=== PATIENT | female | born 1955 | race American Indian/Alaskan Native ===

== ENCOUNTER 2017-03-31 09:03 | Outpatient (CLI) | payer OTHER ==
--- NOTE | 2017-03-31 10:30 | Mammography Report ---
BILATERAL MAMMOGRAM: FINDINGS: Baseline examination. There are scattered fibroglandular densities (approximately 25%-50% glandular). No mass, distortion, suspicious calcification, or skin change is seen. CAD was utilized. IMPRESSION: Negative mammogram. There is no mammographic evidence of malignancy. RECOMMENDATION: Follow-up per ACS guidelines. BI-RADS CATEGORY: 1 = Negative ACR BI-RADS MAMMOGRAPHIC CODES: 0 = Needs additional imaging evaluation; 1 = Negative; 2 = Benign; 3 = Probably benign; 4 = Suspicious; 5 = Malignant; 6 = Known biopsy-proven malignancy COMMENT: 1. Dense breast tissue, i.e., adenosis, fibrocystic changes, etc., may obscure an underlying neoplasm. 2. Approximately 10% of cancers are not detected with mammography. 3. A negative mammography report should not delay biopsy if a clinically suspicious mass is present. COMMENT: Patient follow-up letters are generated in [employer].
== END 2017-03-31 09:04 | disposition home or self-care (01) ==
LOC: SPVWC 09:03
PROVIDERS: ATTEND Family Medicine
DX: Z12.31 Encounter for screening mammogram for malignant neoplasm of breast (principal)
CPT/HCPCS: 77067; G0202

== ENCOUNTER 2017-06-17 09:18 | Outpatient (CLI) | payer OTHER ==
--- NOTE | 2017-06-17 11:46 | Ultrasound Report ---
Thyroid ultrasound. History: Enlarged thyroid. Findings: There are numerous bilateral solid nodules within the thyroid. The largest in the right lobe is in the midpole measuring 2.7 x 2.2 cm. The largest nodule in the left lobe is in the lower pole measuring 2.9 x 2.7 cm. A solid nodule in the isthmus measures 1.8 cm in diameter. Impression: Multinodular goiter.
== END 2017-06-17 09:19 | disposition home or self-care (01) ==
LOC: SPVWC 09:18
PROVIDERS: ATTEND Family Medicine
DX: E04.2 Nontoxic multinodular goiter (principal)
CPT/HCPCS: 76536

== ENCOUNTER 2019-08-04 10:04 | Outpatient (CLI) | payer OTHER ==
--- NOTE | 2019-08-07 11:44 | Mammography Report ---
DIGITAL SCREENING MAMMOGRAM WITH CAD, 08/04/2019 INDICATION: Routine screening mammography. TECHNIQUE: Digital bilateral 2D mammography was obtained in the craniocaudal and mediolateral obliq ue projections. This examination was interpreted with the benefit of Computer-Aided Detection analysi s. COMPARISON: 03/31/2017 FINDINGS: Breast Density: The breasts are heterogeneously dense, which may obscure small masses. There is no evidence of dominant mass, suspicious calcifications or architectural distortion in eithe r breast. IMPRESSION: No mammographic evidence of malignancy. Follow up recommendation: Routine yearly BI-RADS Category 1: Negative. A "normal" or negative report should not discourage follow up or biopsy of a clinically significant f inding. A written summary of these findings will be mailed to the patient. The patient will be entered into a mammography reporting system which will generate a reminder letter for the patient's next appointmen t at the appropriate interval. The [employer] recommends yearly mammograms starting at age 40 and continuing as l cynthia as a woman is in good health. Breast MRI is recommended for women with an approximate 20-25% or greater lifetime risk of breast cancer, including women with a strong family history of breast or ova elisa cancer or who have been treated for Hodgkin's disease. Signer Name: Gary Ludwig MD Signed: 08/07/2019 11:39 AM Workstation Name: [id number]
== END 2019-08-04 10:05 | disposition home or self-care (01) ==
LOC: SPVWC 10:04
PROVIDERS: ATTEND Family Medicine
DX: Z12.31 Encounter for screening mammogram for malignant neoplasm of breast (principal)
CPT/HCPCS: 77067